=== PATIENT | female | born 1960 | race Caucasian/White ===

== ENCOUNTER → 2016-10-20 | Outpatient (CLI) | payer BC ==
--- NOTE | 2016-10-21 19:31 | ECHOCARDIOGRAPHY REPORT ---
DATE OF SERVICE: 10/20/2016 DATE OF PROCEDURE: 10/20/2016 ORDERING PHYSICIAN: Dr. Huerta. PRIMARY PHYSICIAN: Dr. Alonso. CLINICAL DIAGNOSIS: Hypertensive cardiovascular disease, hypertension, hyperlipidemia. MEASUREMENTS: Left atrium 3.1. Aortic root 3.3. LV diameter diastolic 4.6. IVS thickness, diastolic 0.9. LVPW thickness, diastolic 1. DESCRIPTION: Two-dimensional echocardiography shows normal global left ventricular systolic function with normal regional wall motion. Left ventricular ejection fraction is approximately 60%. Aortic, mitral and tricuspid valve leaflets show good leaflet excursion. There is no significant pericardial effusion. Doppler imaging shows trivial tricuspid regurgitation. There is no Doppler evidence of any significant valvular stenosis. There is trivial pulmonic regurgitation. Pulmonary artery systolic pressure is estimated at approximately 25 mmHg. There is no Doppler evidence of any significant valvular stenosis. Inferior vena cava is of normal size and does exhibit inspiratory collapse. Subcostal views are difficult. On the views available, there is no evidence of any significant intracardiac shunt on this transthoracic echocardiographic study. CONCLUSIONS: 1. Normal global left ventricular systolic function with an ejection fraction of approximately 65%. 2. Trivial tricuspid and pulmonic regurgitation. 3. No evidence of any significant valvular stenosis. 4. Pulmonary artery systolic pressure is estimated at approximately 25 mmHg. Job ID: [id number] DocumentID: [id number] Dictated Date: 10/20/2016 15:08:52 Elevator Repair Mechanic Date: 10/21/2016 10:27:49 Dictated By: TUSHAR HUERTA MD, MA, FACP, FACC,
== END ==
LOC: CARD 10:24
PROVIDERS: ATTEND Internal Medicine Cardiovascular Disease
DX: I11.0 Hypertensive heart disease with heart failure (principal); E78.5 Hyperlipidemia, unspecified
CPT/HCPCS: 93306

== ENCOUNTER → 2016-10-31 | Outpatient (CLI) | payer BC ==
[~2016-10-31] MED LIST: CATHETER FLUSH 10 ML SYR IV PRN; REGADENOSON 0.4 MG/5 ML SYR (LEXISCAN) IV ONE
[2016-10-31 09:27] VITALS: BP 154/93
[2016-10-31 09:44] VITALS: BP 165/100
[2016-10-31 09:46] VITALS: BP 158/93
[2016-10-31 09:48] VITALS: BP 150/96
--- NOTE | 2016-11-02 07:44 | STRESS TEST ---
DATE OF SERVICE: 10/31/2016 RESTING AND POST REGADENOSON TECHNETIUM [address] IMAGING ORDERING PHYSICIAN: Dr. Huerta. PRIMARY PHYSICIAN: Dr. Alonso. CLINICAL DIAGNOSES: Chest discomfort, hypertension, hypertensive cardiovascular disease. Baseline images were carried out after injection of 10.47 mCi of technetium 99 M Tetrofosmin. This was followed by 0.4 mg regadenoson and 29.2 mCi of technetium 99 M Tetrofosmin for stress imaging. The electrocardiogram showed sinus rhythm with voltage for left ventricular hypertrophy and repolarization abnormality at baseline. The electrocardiogram did not change significantly with regadenoson infusion. Rare isolated premature ventricular contractions were seen. The patient reported some chest heaviness following regadenoson infusion, which resolved in a few minutes. Review of images at rest and following stress does not indicate any significant perfusion defects consistent with significant myocardial ischemia or infarction. Gated images show normal global left ventricular systolic function with normal regional wall motion. Left ventricular ejection fraction is calculated to be 69%. Left ventricular end diastolic volume is 59 mL. TID is absent (0.87). CONCLUSIONS: 1. No evidence of significant myocardial ischemia or infarction on this study. 2. Normal regional wall motion. 3. Normal global left ventricular systolic function with a calculated ejection fraction of 69%. 4. Normal left ventricular cavity size. Job ID: [id number] DocumentID: [id number] Dictated Date: 11/01/2016 13:17:32 Extension Course Counselor Date: 11/01/2016 19:49:23 Dictated By: TUSHAR HUERTA MD, MA, FACP, FACC,
== END ==
LOC: CARD 07:02
PROVIDERS: ATTEND Internal Medicine Cardiovascular Disease
DX: I10 Essential (primary) hypertension (principal); R79.89 Other specified abnormal findings of blood chemistry; R07.89 Other chest pain
CPT/HCPCS: 78452; 93017

== ENCOUNTER → 2016-11-07 | Outpatient (CLI) | payer BC ==
--- NOTE | 2016-11-07 09:24 | Diagnostic Imaging Report ---
EXAMINATION: Renal vascular ultrasound. INDICATION: Hypertension. FINDINGS: The right kidney is 10.2 and the left kidney is 10.9 cm in length. There is no hydronephrosis or focal lesion seen in either kidney. The right renal artery velocities are 156, 98, and 111 cm/s from proximal to distal. The renal artery velocities in the left mid and distal segments are 60 and 67 cm/s. The proximal left renal artery segment is obscured. The resistive index in the right kidney is in the range of 0.56 to 0.59 and on the left side is 0.61 to 0.7. IMPRESSION: The proximal left renal artery is obscured. No evidence of renal artery stenosis is seen otherwise. Dictated by: Dictated on workstation # [id number]
== END ==
LOC: RAD 07:29
PROVIDERS: ATTEND Internal Medicine Cardiovascular Disease
DX: I10 Essential (primary) hypertension (principal); R79.89 Other specified abnormal findings of blood chemistry; R07.89 Other chest pain
CPT/HCPCS: 93975

== ENCOUNTER → 2017-03-08 | Outpatient (CLI) | payer BC ==
--- NOTE | 2017-03-08 17:39 | Diagnostic Imaging Report ---
Bilateral screening mammogram 2D views with tomosynthesis The current study was also evaluated with a Computer Aided Detection (CAD) system. INDICATION: Screening. No current complaints stated on the questionnaire. COMPARISON: 02/17/2016. FINDINGS: The breasts are composed of heterogeneously dense parenchyma which may decrease mammographic sensitivity. Allowing for technique and positional differences, no suspicious change is seen. IMPRESSION: Dense breasts with no definite change. ACR BI-RADS Category 2: Benign findings. Result letter will be mailed to the patient. Note: At least 10% of breast cancer is not imaged by mammography. Dictated by: Dictated on workstation # [id number]
== END ==
LOC: RAD 10:16
PROVIDERS: ATTEND Internal Medicine
DX: Z12.31 Encounter for screening mammogram for malignant neoplasm of breast (principal)
CPT/HCPCS: 77067

== ENCOUNTER → 2018-03-14 | Outpatient (CLI) | payer BC ==
--- NOTE | 2018-03-14 18:56 | Diagnostic Imaging Report ---
INDICATION: Routine screening. COMPARISON: Comparison is made with prior mammogram from 03/08/2017 and 02/17/2016. TECHNIQUE: 2D and 3D bilateral screening mammography was performed with CAD. FINDINGS: Scattered fibroglandular densities are identified bilaterally. The parenchymal pattern is stable. Circumscribed density in the outer left breast appears stable. No new mass or malignant-appearing microcalcifications are seen. The axillae are unremarkable. IMPRESSION: No mammographic features suspicious for malignancy are identified. ACR BI-RADS Category 2: Benign findings. Result letter will be mailed to the patient. Note: At least 10% of breast cancer is not imaged by mammography. Dictated by: Dictated on workstation # [id number]
== END ==
LOC: RAD 14:29
PROVIDERS: ATTEND Internal Medicine
DX: Z12.31 Encounter for screening mammogram for malignant neoplasm of breast (principal)
CPT/HCPCS: 77067

== ENCOUNTER → 2019-03-28 | Outpatient (CLI) | payer BC ==
--- NOTE | 2019-03-28 13:00 | Diagnostic Imaging Report ---
INDICATION: Routine screening. COMPARISON: Comparison is made with prior mammograms from 03/14/2018 and 03/08/2017. TECHNIQUE: 2-D and 3-D bilateral screening mammography was performed. The current study was also evaluated with a Computer Aided Detection (CAD) system. 3-D tomosynthesis was also performed and reviewed. FINDINGS: Scattered fibroglandular densities are identified bilaterally. The parenchymal pattern is stable. No mass or malignant-appearing microcalcifications are seen. There are benign calcifications. Axillae are unremarkable. IMPRESSION: No mammographic features suspicious for malignancy are identified. ACR BI-RADS Category 2: Benign findings. Result letter will be mailed to the patient. Note: At least 10% of breast cancer is not imaged by mammography. Dictated by: Dictated on workstation # [id number]
== END ==
LOC: RAD 09:04
PROVIDERS: ATTEND Internal Medicine
DX: Z12.31 Encounter for screening mammogram for malignant neoplasm of breast (principal)
CPT/HCPCS: 77067

== ENCOUNTER → 2020-10-12 | Outpatient (CLI) | payer BC ==
--- NOTE | 2020-10-12 16:09 | Diagnostic Imaging Report ---
PROCEDURE: CT head without contrast. TECHNIQUE: Multiple contiguous axial images were obtained through the brain without the use of intravenous contrast. Auto Exposure Controls were utilized during the CT exam to meet ALARA standards for radiation dose reduction. INDICATION: Right forehead headache. COMPARISON: There are no prior studies available for comparison. FINDINGS: There is no mass, shift of the midline, or hemorrhage to suggest an acute intracranial abnormally. The ventricles are not abnormally dilated. There are mild senescent changes present including cortical atrophy and periventricular encephalomalacia. The bone windows show no sign of an acute fracture; however, the images through the skull base do show some irregularity of the hook of the hamulus on the right. There is also slight thinning of the anterior cortex of the middle cranial fossa in this area. Furthermore, along the medial wall of the left mandible, there is an asymmetric 3.0 x 4.0 cm soft tissue fullness. This finding is not visualized in its entirety and consequently difficult to assess accurately. The possibility that this mass is neoplastic in nature should certainly be considered. I would recommend that CT of the neck be performed for further evaluation. The orbits are symmetrical and within normal limits. The sinuses, where visualized, are generally clear. IMPRESSION: 1. There is no evidence for an acute intracranial abnormality. If clinical concern regarding an underlying acute intracranial abnormality persists, then MRI would be recommended for further study. 2. The asymmetric soft tissue density along the medial wall of the right mandible is of uncertain etiology but worrisome for neoplastic disease. Recommendations as above. 3. These results were discussed with Dr. Lacey Alonso. Dictated by: Dictated on workstation # [id number]
--- NOTE | 2020-10-13 07:51 | Diagnostic Imaging Report ---
EXAMINATION: Digital mammogram bilateral screening with CAD. INDICATION: Screening. COMPARISON: This study was compared to the prior exams of 03/28/2019, 03/14/2018, and 03/08/2017. PERSONAL HISTORY: At this time, there are no current complaints. FINDINGS: The fibroglandular tissue in both breasts is heterogeneously dense. This does limit the sensitivity of this exam. Overall, there does not appear to have been any significant change when compared to the prior study. No primary or secondary sign of malignancy is noted. IMPRESSION: There is no radiographic evidence for malignancy. ACR BI-RADS Category 1: Negative. Result letter will be mailed to the patient. Note: At least 10% of breast cancer is not imaged by mammography. Dictated by: Dictated on workstation # [id number]
== END ==
LOC: RAD 15:30
PROVIDERS: ATTEND Internal Medicine
DX: Z12.31 Encounter for screening mammogram for malignant neoplasm of breast (principal); R51.9 Headache, unspecified
CPT/HCPCS: 70450; 77063; 77067

== ENCOUNTER → 2021-02-09 | Outpatient (CLI) | payer BC ==
--- NOTE | 2021-02-09 15:17 | Diagnostic Imaging Report ---
PROCEDURE: CT head without contrast. TECHNIQUE: Multiple contiguous axial images were obtained through the brain without the use of intravenous contrast. Auto Exposure Controls were utilized during the CT exam to meet ALARA standards for radiation dose reduction. INDICATION: Memory loss and intermittent headache for one month. COMPARISON: Comparison is made with prior head CT from 10/12/2020. FINDINGS: Ventricles and sulci are within normal limits. No sulcal effacement or midline shift is identified. No acute intra-axial or extra-axial hemorrhage is detected. Cisterns are patent. Visualized paranasal sinuses are clear. IMPRESSION: No acute intracranial process is detected. Dictated by: Dictated on workstation # [id number]
== END ==
LOC: RAD FS 14:13
PROVIDERS: ATTEND Internal Medicine
DX: R41.3 Other amnesia (principal); R51.9 Headache, unspecified
CPT/HCPCS: 70450